=== PATIENT | female | born 1960 | race Caucasian/White ===

== ENCOUNTER → 2017-02-01 | Outpatient (CLI) | payer MEDICARE | LOC: LAB 13:42 | DX: H49.22 Sixth [abducent] nerve palsy, left eye (principal) | CPT/HCPCS: 36415; 82565; 84520 ==

== ENCOUNTER → 2017-02-02 | Outpatient (CLI) | payer MEDICARE | LOC: KOH-I 09:29 | DX: H49.22 Sixth [abducent] nerve palsy, left eye (principal); R93.0 Abnormal findings on diagnostic imaging of skull and head, not elsewhere classified | CPT/HCPCS: 70553; A9577 ==

== ENCOUNTER → 2021-03-01 | Outpatient (CLI) | payer MEDICARE ==
[~2021-03-01] VITALS: Ht 175.3 cm; Wt 57.6 kg
[~2021-03-01] MED LIST: LODINE CAP 300300 MG PO; MOBIC15 MG PO
== END ==
LOC: OPSV 08:36
DX: M81.0 Age-related osteoporosis without current pathological fracture (principal)
CPT/HCPCS: 96365; J3489